=== PATIENT | male | born 1965 | race African-American/Black ===

== ENCOUNTER 2023-01-27 10:08 | Inpatient (IN) | payer OTHER ==
[2023-01-27 11:41] VITALS: BMI 30.8
[2023-01-27] MEDS ORDERED: chlordiazePOXIDE HCL 25 MG CAPSULE PO PRN (13:29)
[2023-01-27] MEDS ORDERED: BISMUTH SUBSALICYLATE 524 MG/30 ML PO PRN (13:29)
[2023-01-27] MEDS ORDERED: ONDANSETRON *ODT* 4 MG TABLET SL PRN (13:29)
[2023-01-27] MEDS ORDERED: BENZOCAINE/MENTHOL (CHLORASEPTIC ) LOZENGE MM PRN (13:29)
[2023-01-27] MEDS ORDERED: BENZONATATE 200 MG CAPSULE PO PRN (13:29)
[2023-01-27] MEDS ORDERED: NALOXONE HCL (KLOXXADO) 8 MG SPRAY NS PRN (13:29)
[2023-01-27] MEDS ORDERED: NALOXONE HCL 0.4 MG/ML VIAL IM PRN (13:29)
[2023-01-27] MEDS ORDERED: guaiFENesin 600 MG TABLET.ER (FP) PO PRN (13:29)
[2023-01-27] MEDS ORDERED: MAGNESIUM HYDROX 2400MG/30ML ORAL SUSPENSION 30 ML CUP PO PRN (13:29)
[2023-01-27] MEDS ORDERED: POLYETHYLENE GLYCOL (HEALTHYLAX) 3350 17 GM PACKET PO PRN (13:29)
[2023-01-27] MEDS ORDERED: DICYCLOMINE HCL 10 MG CAPSULE PO PRN (13:29)
[2023-01-27] MEDS ORDERED: LOPERAMIDE HCL 2 MG CAPSULE PO PRN (13:29)
[2023-01-27] MEDS ORDERED: MAG HYDROX/AL HYDROX/SIMETH 30 ML UNIT-DOSE CUP PO PRN (13:29)
[2023-01-27] MEDS ORDERED: IBUPROFEN 400 MG TABLET (FP) PO PRN (13:29)
[2023-01-27] MEDS: hydrOXYzine PAMOATE 25 MG CAPSULE (FP) PO PRN (15:08)
[2023-01-27] MEDS: chlordiazePOXIDE HCL 25 MG CAPSULE PO SCH ×2 (17:30→22:09)
[2023-01-27] MEDS: THIAMINE HCL 100 MG TABLET (FP) PO SCH (21:55)
[2023-01-27] MEDS: MELATONIN 5 MG TABLETS PO SCH (21:55)
[2023-01-28] MEDS: IBUPROFEN 600 MG TABLET (FP) PO PRN ×2 (01:14→22:06)
[2023-01-28] MEDS: chlordiazePOXIDE HCL 25 MG CAPSULE PO SCH ×4 (05:20→22:04)
[2023-01-28] MEDS: ACETAMINOPHEN 325 MG TABLET (FP) PO PRN ×2 (05:20→17:26)
[2023-01-28 10:21] LABS: HEMATOCRIT 42.7 % (35.4-49); MCH 28.8 pg (25.7-33.7); MCHC 32.9 g/dl (32.0-35.9); MEAN CELL VOLUME 87.5 fl (80-96); MEAN PLT VOLUME 8.5 fl (7.5-11.1); PLATELET COUNT 214 10^3/uL (134-434); RBC 4.88 M/mm3 (4.00-5.60); RDW 15.4 % (11.9-15.9); WHITE BLOOD COUNT 4.3 K/mm3 (4.0-10.0)
[2023-01-28 10:23] LABS: POTASSIUM 3.7 mmol/L (3.5-5.1)
[2023-01-28] MEDS: PRENATAL VITAMINS W/ FOLIC ACID TABLET (FP) PO SCH (10:24)
[2023-01-28 10:28] LABS: CALCIUM 8.4 mg/dL (8.5-10.1)
[2023-01-28 10:29] LABS: BLOOD UREA NITROGEN 12.6 mg/dL (7-18)
[2023-01-28 10:34] LABS: BILIRUBIN,TOTAL 0.6 mg/dL (0.2-1); TOT PROT 5.9 g/dl (6.4-8.2)
[2023-01-28] MEDS: NICOTINE POLACRILEX 2 MG GUM BUC PRN ×2 (12:43→17:28)
[2023-01-28] MEDS: BACITRACIN 0.9 GM PACKET TP SCH (22:04)
[2023-01-28] MEDS: MELATONIN 5 MG TABLETS PO SCH (22:04)
[2023-01-28] MEDS: THIAMINE HCL 100 MG TABLET (FP) PO SCH (22:04)
[2023-01-29] MEDS: chlordiazePOXIDE HCL 25 MG CAPSULE PO SCH ×4 (05:11→22:05)
[2023-01-29] MEDS: BACITRACIN 0.9 GM PACKET TP SCH ×2 (10:05→22:05)
[2023-01-29] MEDS: PRENATAL VITAMINS W/ FOLIC ACID TABLET (FP) PO SCH (10:05)
[2023-01-29] MEDS: HYDROCORTISONE 2.5% TOPICAL CREAM 30 GM TUBE RC SCH (10:58)
[2023-01-29] MEDS: NICOTINE POLACRILEX 2 MG GUM BUC PRN ×2 (14:23→17:37)
[2023-01-29] MEDS: IBUPROFEN 600 MG TABLET (FP) PO PRN (17:15)
[2023-01-29] MEDS: hydrOXYzine PAMOATE 25 MG CAPSULE (FP) PO PRN (20:51)
[2023-01-29] MEDS: METHOCARBAMOL 500 MG TABLET PO PRN (20:51)
[2023-01-29] MEDS: MELATONIN 5 MG TABLETS PO SCH (22:05)
[2023-01-29] MEDS: THIAMINE HCL 100 MG TABLET (FP) PO SCH (22:05)
[2023-01-30] MEDS ORDERED: chlordiazePOXIDE HCL 10 MG CAPSULE PO PRN
[2023-01-30] MEDS: chlordiazePOXIDE HCL 10 MG CAPSULE PO SCH ×4 (05:26→22:07)
[2023-01-30] MEDS: ACETAMINOPHEN 325 MG TABLET (FP) PO PRN ×2 (05:28→17:17)
[2023-01-30] MEDS: PRENATAL VITAMINS W/ FOLIC ACID TABLET (FP) PO SCH (10:07)
[2023-01-30] MEDS: BACITRACIN 0.9 GM PACKET TP SCH ×2 (10:09→22:06)
[2023-01-30] MEDS: IBUPROFEN 600 MG TABLET (FP) PO PRN (10:09)
[2023-01-30] MEDS: HYDROCORTISONE 2.5% TOPICAL CREAM 30 GM TUBE RC SCH (10:11)
[2023-01-30] MEDS: NICOTINE POLACRILEX 2 MG GUM BUC PRN (16:33)
[2023-01-30] MEDS: THIAMINE HCL 100 MG TABLET (FP) PO SCH (22:07)
[2023-01-30] MEDS: MELATONIN 5 MG TABLETS PO SCH (22:07)
[2023-01-31] MEDS: NICOTINE POLACRILEX 2 MG GUM BUC PRN (03:43)
[2023-01-31] MEDS: METHOCARBAMOL 500 MG TABLET PO PRN ×2 (05:00→22:05)
[2023-01-31] MEDS: hydrOXYzine PAMOATE 25 MG CAPSULE (FP) PO PRN (05:00)
[2023-01-31] MEDS: chlordiazePOXIDE HCL 10 MG CAPSULE PO SCH ×2 (05:01→17:17)
[2023-01-31] MEDS: PRENATAL VITAMINS W/ FOLIC ACID TABLET (FP) PO SCH (10:11)
[2023-01-31] MEDS: BACITRACIN 0.9 GM PACKET TP SCH ×2 (10:11→22:05)
[2023-01-31] MEDS: HYDROCORTISONE 2.5% TOPICAL CREAM 30 GM TUBE RC SCH (10:11)
[2023-01-31] MEDS: IBUPROFEN 600 MG TABLET (FP) PO PRN (17:19)
[2023-01-31] MEDS: THIAMINE HCL 100 MG TABLET (FP) PO SCH (22:05)
[2023-01-31] MEDS: MELATONIN 5 MG TABLETS PO SCH (22:05)
[2023-02-01] MEDS ORDERED: chlordiazePOXIDE HCL 10 MG CAPSULE PO ONE (05:00)
[2023-02-01] MEDS: ACETAMINOPHEN 325 MG TABLET (FP) PO PRN (05:14)
[2023-02-01 06:12] VITALS: PULSE 81
[2023-02-01 09:06] VITALS: BP 130/87; RESP 19; TEMP 97.1
[2023-02-01] MEDS: IBUPROFEN 600 MG TABLET (FP) PO PRN (09:19)
[2023-02-01] MEDS: PRENATAL VITAMINS W/ FOLIC ACID TABLET (FP) PO SCH (09:19)
[2023-02-01] MEDS: BACITRACIN 0.9 GM PACKET TP SCH (10:37)
[2023-02-01] MEDS: HYDROCORTISONE 2.5% TOPICAL CREAM 30 GM TUBE RC SCH (10:38)
== END 2023-02-01 11:15 | disposition other institution (70) | DRG 774 ==
LOC: YASAS 10:08 → EDSEX 13:41 → Y3N 13:41
PROVIDERS: ADMIT Allergy & Immunology; ATTEND Surgery
PROC: HZ2ZZZZ Detoxification Services for Substance Abuse Treatment (ICD-10-PCS; principal; 2023-01-27)
DX: F10.230 Alcohol dependence with withdrawal, uncomplicated (principal); F14.20 Cocaine dependence, uncomplicated; F17.210 Nicotine dependence, cigarettes, uncomplicated; S60.41 Abrasion of fingers; X58.XXXD Exposure to other specified factors, subsequent encounter
CPT/HCPCS: 36415; 80053; 83036; 85027; 86780; 87635

== ENCOUNTER 2023-11-11 17:10 | Inpatient (IN) | payer OTHER ==
[2023-11-11 18:04] VITALS: BMI 32.4
[2023-11-11] MEDS ORDERED: LOPERAMIDE HCL 2 MG CAPSULE PO PRN (19:18)
[2023-11-11] MEDS ORDERED: guaiFENesin 600 MG TABLET.ER (FP) PO PRN (19:18)
[2023-11-11] MEDS ORDERED: DICYCLOMINE HCL 10 MG CAPSULE PO PRN (19:18)
[2023-11-11] MEDS ORDERED: ONDANSETRON *ODT* 4 MG TABLET SL PRN (19:18)
[2023-11-11] MEDS ORDERED: BISMUTH SUBSALICYLATE 524 MG/30 ML PO PRN (19:18)
[2023-11-11] MEDS ORDERED: BENZOCAINE/MENTHOL (CHLORASEPTIC ) LOZENGE MM PRN (19:18)
[2023-11-11] MEDS ORDERED: ACETAMINOPHEN 325 MG TABLET (FP) PO PRN (19:18)
[2023-11-11] MEDS ORDERED: NICOTINE POLACRILEX 2 MG GUM BUC PRN (19:18)
[2023-11-11] MEDS ORDERED: IBUPROFEN 400 MG TABLET (FP) PO PRN (19:18)
[2023-11-11] MEDS ORDERED: MAG HYDROX/AL HYDROX/SIMETH 30 ML UNIT-DOSE CUP PO PRN (19:18)
[2023-11-11] MEDS ORDERED: POLYETHYLENE GLYCOL (HEALTHYLAX) 3350 17 GM PACKET PO PRN (19:18)
[2023-11-11] MEDS ORDERED: MAGNESIUM HYDROX 2400MG/30ML ORAL SUSPENSION 30 ML CUP PO PRN (19:18)
[2023-11-11] MEDS ORDERED: IBUPROFEN 600 MG TABLET (FP) PO PRN (19:18)
[2023-11-11] MEDS ORDERED: BENZONATATE 200 MG CAPSULE PO PRN (19:18)
[2023-11-11] MEDS ORDERED: NICOTINE POLACRILEX 2 MG LOZENGE BC PRN (19:18)
[2023-11-11] MEDS: MELATONIN 5 MG TABLETS PO SCH (21:28)
[2023-11-11] MEDS: THIAMINE 100 MG TABLET PO SCH (21:28)
[2023-11-11] MEDS: METHOCARBAMOL 500 MG TABLET PO PRN (21:28)
[2023-11-12] MEDS ORDERED: chlordiazePOXIDE HCL 25 MG CAPSULE PO PRN (09:31)
[2023-11-12] MEDS: PRENATAL VITAMINS W/ FOLIC ACID TABLET (FP) PO SCH (10:15)
[2023-11-12] MEDS: chlordiazePOXIDE HCL 25 MG CAPSULE PO SCH (10:16)
[2023-11-12 11:58] LABS: HEMATOCRIT 43.5 % (35.4-49); HEMOGLOBIN 14.6 GM/dL (11.7-16.9); MCH 28.4 pg (25.7-33.7); MCHC 33.5 g/dl (32.0-35.9); MEAN CELL VOLUME 84.8 fl (80-96); MEAN PLT VOLUME 8.4 fl (7.5-11.1); PLATELET COUNT 220 10^3/uL (134-434); RBC 5.13 M/mm3 (4.00-5.60); RDW 15.3 % (11.9-15.9); WHITE BLOOD COUNT 6.9 K/mm3 (4.0-10.0)
[2023-11-12 12:07] LABS: CHLORIDE 106 mmol/L (98-107); POTASSIUM 4.3 mmol/L (3.5-5.1); SODIUM 140 mmol/L (136-145)
[2023-11-12 12:16] LABS: ALBUMIN 3.2 g/dl (3.4-5.0); ANION GAP 6 mmol/L (4-13); CALCIUM 8.8 mg/dL (8.5-10.1); CO2 28 mmol/L (21-32); GLUCOSE,RANDOM 93 mg/dL (74-106)
[2023-11-12 12:19] LABS: CREATININE 1.2 mg/dL (0.55-1.3); SGOT/AST 34 U/L (15-37); SGPT/ALT 46 U/L (13-61)
[2023-11-12 12:20] LABS: BILIRUBIN,TOTAL 0.8 mg/dL (0.2-1); TOT PROT 6.6 g/dl (6.4-8.2)
[2023-11-12 12:21] LABS: ALK PHOS 86 U/L (45-117)
[2023-11-14] MEDS: chlordiazePOXIDE HCL 25 MG CAPSULE PO SCH (05:19)
[2023-11-15] MEDS ORDERED: chlordiazePOXIDE HCL 10 MG CAPSULE PO PRN
[2023-11-15] MEDS: chlordiazePOXIDE HCL 10 MG CAPSULE PO SCH (05:32)
[2023-11-15 06:12] VITALS: RESP 18
[2023-11-15 18:11] VITALS: BP 109/69; PULSE 80; TEMP 97.5
[2023-11-16] MEDS ORDERED: chlordiazePOXIDE HCL 10 MG CAPSULE PO SCH (05:00)
[2023-11-17] MEDS ORDERED: chlordiazePOXIDE HCL 10 MG CAPSULE PO ONE (05:00)
== END 2023-11-15 06:58 | disposition home or self-care (01) | DRG 774 ==
LOC: YASAS 17:10 → Y3N 19:44
PROVIDERS: ADMIT Allergy & Immunology; ATTEND Surgery
PROC: HZ2ZZZZ Detoxification Services for Substance Abuse Treatment (ICD-10-PCS; principal; 2023-11-11)
DX: F10.230 Alcohol dependence with withdrawal, uncomplicated (principal); F14.20 Cocaine dependence, uncomplicated; F17.210 Nicotine dependence, cigarettes, uncomplicated; G47.33 Obstructive sleep apnea (adult) (pediatric)
CPT/HCPCS: 36415; 80053; 80305; 80307; 85027; 86780

== ENCOUNTER 2024-08-04 11:20 | Inpatient (IN) | payer BC, OTHER ==
[2024-08-04 11:35] VITALS: BMI 33.0
[2024-08-04] MEDS ORDERED: BENZONATATE 200 MG CAPSULE PO PRN (11:43)
[2024-08-04] MEDS ORDERED: POLYETHYLENE GLYCOL (HEALTHYLAX) 3350 17 GM PACKET PO PRN (11:43)
[2024-08-04] MEDS ORDERED: MAGNESIUM HYDROX 2400MG/30ML ORAL SUSPENSION 30 ML CUP PO PRN (11:43)
[2024-08-04] MEDS ORDERED: NICOTINE POLACRILEX 2 MG GUM BUC PRN (11:43)
[2024-08-04] MEDS ORDERED: IBUPROFEN 400 MG TABLET (FP) PO PRN (11:43)
[2024-08-04] MEDS ORDERED: BISMUTH SUBSALICYLATE 262 MG/15 ML BTL PO PRN (11:43)
[2024-08-04] MEDS ORDERED: MAG HYDROX/AL HYDROX/SIMETH 30 ML UNIT-DOSE CUP PO PRN (11:43)
[2024-08-04] MEDS ORDERED: ACETAMINOPHEN 325 MG TABLET (FP) PO PRN (11:43)
[2024-08-04] MEDS ORDERED: ONDANSETRON *ODT* 4 MG TABLET SL PRN (11:43)
[2024-08-04] MEDS ORDERED: DICYCLOMINE HCL 10 MG CAPSULE PO PRN (11:43)
[2024-08-04] MEDS ORDERED: NALOXONE (NARCAN) HCL 4 MG/0.1 ML SPRAY NS PRN (11:43)
[2024-08-04] MEDS ORDERED: LOPERAMIDE HCL 2 MG CAPSULE PO PRN (11:43)
[2024-08-04] MEDS ORDERED: BENZOCAINE/MENTHOL (CHLORASEPTIC ) LOZENGE MM PRN (11:43)
[2024-08-04] MEDS ORDERED: guaiFENesin 600 MG TABLET.ER (FP) PO PRN (11:43)
[2024-08-04] MEDS ORDERED: NICOTINE POLACRILEX 2 MG LOZENGE BC PRN (11:43)
[2024-08-04] MEDS ORDERED: chlordiazePOXIDE HCL 25 MG CAPSULE PO PRN (15:36)
[2024-08-04] MEDS: chlordiazePOXIDE HCL 25 MG CAPSULE PO SCH (16:01)
[2024-08-04] MEDS: MELATONIN 5 MG TABLETS PO SCH (22:05)
[2024-08-04] MEDS: THIAMINE 100 MG TABLET PO SCH (22:06)
[2024-08-05] MEDS: PRENATAL VITAMINS W/ FOLIC ACID TABLET (FP) PO SCH (10:29)
[2024-08-05 11:31] LABS: HEMATOCRIT 44.4 % (40.1-51.0); HEMOGLOBIN 13.6 g/dL (13.7-17.5); MCHC 30.6 g/dl (32.3-36.5); MEAN CELL VOLUME 89.2 fl (79.0-92.2); MEAN PLT VOLUME 11.2 fl (9.4-12.4); PLATELET COUNT 204 x10^3/uL (163-337); RDW 16.1 % (12.2-16.1)
[2024-08-05 11:35] LABS: POTASSIUM 5.1 mmol/L (3.5-5.1)
[2024-08-05 11:42] LABS: ALBUMIN 3.6 g/dl (3.4-5.0); CALCIUM 9.2 mg/dL (8.5-10.1)
[2024-08-05 11:43] LABS: BLOOD UREA NITROGEN 10.6 mg/dL (7-18)
[2024-08-05 11:47] LABS: BILIRUBIN,TOTAL 0.7 mg/dL (0.2-1)
[2024-08-05 11:48] LABS: TOT PROT 6.7 g/dl (6.4-8.2)
[2024-08-05] MEDS: IBUPROFEN 600 MG TABLET (FP) PO PRN (17:22)
[2024-08-06] MEDS: chlordiazePOXIDE HCL 25 MG CAPSULE PO SCH (05:45)
[2024-08-06] MEDS: BACITRACIN 0.9 GM PACKET TP SCH (17:17)
[2024-08-06] MEDS: hydrOXYzine PAMOATE 25 MG CAPSULE (FP) PO PRN (22:36)
[2024-08-07] MEDS ORDERED: chlordiazePOXIDE HCL 10 MG CAPSULE PO PRN
[2024-08-07] MEDS: chlordiazePOXIDE HCL 10 MG CAPSULE PO SCH (05:39)
[2024-08-08] MEDS: chlordiazePOXIDE HCL 10 MG CAPSULE PO SCH (05:16)
[2024-08-08] MEDS: METHOCARBAMOL 500 MG TABLET PO PRN (21:35)
[2024-08-09] MEDS: chlordiazePOXIDE HCL 10 MG CAPSULE PO ONE (05:28)
[2024-08-09 08:38] VITALS: BP 134/71; PULSE 73; RESP 18; TEMP 98.3
== END 2024-08-09 09:54 | disposition home or self-care (01) | DRG 897 ==
LOC: YASAS 11:20 → Y3N 12:07
PROVIDERS: ADMIT Allergy & Immunology; ATTEND Allergy & Immunology
PROC: HZ2ZZZZ Detoxification Services for Substance Abuse Treatment (ICD-10-PCS; principal; 2024-08-04)
DX: F10.230 Alcohol dependence with withdrawal, uncomplicated (principal); F10.220 Alcohol dependence with intoxication, uncomplicated; F14.10 Cocaine abuse, uncomplicated; F17.210 Nicotine dependence, cigarettes, uncomplicated; G47.33 Obstructive sleep apnea (adult) (pediatric)
CPT/HCPCS: 36415; 80053; 80305; 80307; 85027; 86780; 93005; 93010